=== PATIENT | male | born 1975 | race Caucasian/White ===

== ENCOUNTER 2022-05-06 09:49 | Emergency (ER) | payer OTHER ==
[~2022-05-06] VITALS: Ht 167.6 cm; Wt 80.3 kg
[2022-05-06 10:15] VITALS: BP_SYST 126
[2022-05-06 15:57] LABS: BASOPHILS # (AUTO) 0.2 K/uL (0.0-0.2); BASOPHILS % (AUTO) 1.4 % (0.0-2.0); EOSINOPHILS # (AUTO) 0.1 K/uL (0.0-0.4); EOSINOPHILS % (AUTO) 0.8 % (0.0-4.0); HEMOGLOBIN 14.5 g/dL (14.0-18.0); LYMPHOCYTES # (AUTO) 1.8 K/uL (1.0-5.5); LYMPHOCYTES % (AUTO) 12.4 % (20.5-51.5); MEAN CORPUSCULAR HEMOGLOBIN 30 pg (27-31); MEAN CORPUSCULAR HGB CONC 35 % (32-36); MEAN CORPUSCULAR VOLUME 88 fL (79.0-98.0); MONOCYTES # (AUTO) 0.7 K/uL (0.0-1.0); MONOCYTES % (AUTO) 4.6 % (1.7-9.3); NEUTROPHILS # (AUTO) 11.8 K/uL (1.8-7.7); NEUTROPHILS % (AUTO) 80.8 % (40.0-70.0); PLATELET COUNT (AUTO) 218 K/uL (130-430); RED BLOOD CELL COUNT(AUTO) 4.79 MIL/uL (4.2-6.2); RED CELL DISTRIBUTION WIDTH 12.5 % (9.0-15.0); WHITE BLOOD COUNT (AUTO) 14.7 K/uL (4.8-10.8)
[2022-05-06 16:15] LABS: CALCIUM 9.3 mg/dL (8.4-11.0); CREATININE 1.22 mg/dL (0.55-1.30); POTASSIUM 4.6 mmol/L (3.5-5.1)
--- NOTE | 2022-05-06 18:00 | NUR ---
ER at bedside examining patient.
--- NOTE | 2022-05-06 18:08 | NUR ---
Pt presents to the ER BIB CC rectal pain R/T abcess 05/10. Pt is afebrile, onset 2 weeks, with drainage. No PMHx. NKA.
[2022-05-06] MEDS ORDERED: KETOROLAC TROMETHAMINE 15 MG VIAL IVP ONE (18:15)
--- NOTE | 2022-05-06 18:32 | NUR ---
# 20 gauge angiocath placed to left forearm. Use of asceptic technique. Opsite placed over site. Blood return noted. Blood for lab drawn from site. Flushed with 10 cc of normal saline. No evidence of infiltration noted. Patient tolerated well.
[2022-05-06] MEDS ORDERED: iohexoL 300 mgI/mL, 150 ML INFUS..BTL IV ONE (18:33)
[2022-05-06] MEDS ORDERED: KETOROLAC TROMETHAMINE 15 MG VIAL ONE (18:39)
--- NOTE | 2022-05-06 18:45 | NUR ---
Pt to Radiology dept via .
--- NOTE | 2022-05-06 19:17 | NUR ---
Report given to PAMELA Sharma
[2022-05-06] MEDS ORDERED: LIDOCAINE 1% 10 MG/ML, 20 ML MDV INJ ONE (20:45)
--- NOTE | 2022-05-06 21:15 | NUR ---
MD Rosas at bedside.
--- NOTE | 2022-05-06 21:20 | NUR ---
I&D Procedure done by Dr Rosas using sterile technique. Lidocaine 1% used. Wound care discussed w/ patient. Pt tolerated procedure well.
--- NOTE | 2022-05-06 22:00 | NUR ---
Patient given written and verbal discharge instructions and verbalizes understanding. ER MD Rosas discussed with patient the results and treatment provided. Patient in stable condition. ID arm band removed. IV catheter removed intact and dressing applied, no active bleeding. Patient educated on pain management and to follow up with PMD. Pain Scale 1/10. Opportunity for questions provided and answered.
[2022-05-06 22:08] VITALS: BP_SYST 131
== END 2022-05-06 22:00 | disposition home or self-care (01) ==
LOC: SED 09:49
DX: K61.0 Anal abscess (principal); K62.89 Other specified diseases of anus and rectum; E11.9 Type 2 diabetes mellitus without complications; Z79.899 Other long term (current) drug therapy
CPT/HCPCS: 46050; 99285; 96374; 72193; 80048; 85025; 36415; 76376; Q9967; J1885; J2001